=== PATIENT | male | born 1990 | race Two or more races ===

== ENCOUNTER 2016-08-11 22:03 | Emergency (ER) | payer MEDICAID ==
[~2016-08-11] VITALS: Ht 160 cm; Wt 59.0 kg
[2016-08-11 22:06] VITALS: BP 105/69
[2016-08-11] MEDS ORDERED: CIPROFLOXACIN500 M2 ORAL (22:17)
--- NOTE | 2016-08-11 22:17 | Emergency Room Report ---
History of Present Illness General Chief Complaint: Abdominal Pain Source: Patient, EMS Present Illness HPI Is a 26-year-old male with a history of IV course of methamphetamine abuse. He presents with 2 days history of abdominal cramps with profuse diarrhea. Also felt nauseous. No fever or chills. Pain is crampy in nature. 09/01. He said he is having diarrhea every 5 minutes. He's been here for almost an hour without any diarrhea. Denies any other complaint. Pain is 7/10. Allergies: Coded Allergies: PENICILLINS (Verified Allergy, Unknown, 08/11/16) Patient History Past Medical History: see triage record, old chart reviewed Past Surgical History: none Pertinent Family History: none Social History: Denies: smoking Immunizations: other Reviewed Nursing Documentation: PMH: Agreed, PSxH: Agreed Nursing Documentation-PMH History Of Psychiatric Problem: Yes - ANXIETY,PTSD,SCHIZO Review of Systems Eye: Denies: blurred vision, eye pain ENT: Denies: ear pain, nose congestion, throat swelling Respiratory: Denies: cough, shortness of breath Cardiovascular: Denies: chest pain, palpitations Gastrointestinal: Reports: abdominal pain, diarrhea, nausea, vomiting Musculoskeletal: Denies: back pain, joint pain Skin: Denies: rash Neurological: Denies: headache, numbness Endocrine: Denies: increased thirst, increased urine Hematologic/Lymphatic: Denies: easy bruising All Other Systems: negative except mentioned in HPI Physical Exam Vital Signs Date Time Temp Pulse Resp B/P Pulse Ox O2 Delivery O2 Flow Rate FiO2 08/11/16 21:56 98.4 132 16 105/69 96 Room Air vitals with tachycardia Sp02 EP Interpretation: reviewed, normal General Appearance: well appearing, no apparent distress, alert Head: normocephalic, atraumatic Eyes: bilateral eye EOMI, bilateral eye PERRL ENT: hearing grossly normal, normal pharynx Neck: full range of motion, supple, no meningismus Respiratory: chest non-tender, lungs clear, normal breath sounds Cardiovascular #1: regular rate, rhythm, no murmur, tachycardia - HR 104 Gastrointestinal: normal bowel sounds, no mass, no organomegaly, no bruit, non- distended, tenderness - diffuse. soft Musculoskeletal: back normal, gait/station normal, normal range of motion Neurologic: alert, oriented x3 Psychiatric: mood/affect normal Skin: warm/dry Medical Decision Making Diagnostic Impression: Primary Impression: Abdominal pain of unknown etiology Additional Impression: OTHER STIMULANT USE, UNSPECIFIED WITH WITHDRAWAL ER Course Is a presents withdrawal symptoms. No evidence of obstruction. Abdomen is soft. I see no evidence of acute abdomen. We'll discharge home. Patient asked to do HIV testing here. I see no need for emergent HIV testing. This can't be done anonymously an outpatient. I gave him resources for it. Last Vital Signs Date Time Temp Pulse Resp B/P Pulse Ox O2 Delivery O2 Flow Rate FiO2 08/11/16 21:56 98.4 132 16 105/69 96 Room Air Status: improved Disposition: HOME, SELF-CARE Condition: Stable Scripts Ciprofloxacin Hcl* (CIPROFLOXACIN HCL*) 500 Mg Tablet 500 MG ORAL Q12H, #14 TAB 0 Refills Prov: DAMIAN BURTON M.D. 08/11/16 Additional Instructions: Followup with your DrPorfirio in 7 days. Return it worse. DAMIAN BURTON M.D. Aug 11, 2016 22:17
[2016-08-11 22:21] VITALS: BP 105/69
== END 2016-08-11 22:21 | disposition home or self-care (01) ==
LOC: EDBD 22:03 → EMR 22:17
DX: R10.9 Unspecified abdominal pain (principal); F15.93 Other stimulant use, unspecified with withdrawal; R19.7 Diarrhea, unspecified; Z88.0 Allergy status to penicillin; F41.9 Anxiety disorder, unspecified; F43.10 Post-traumatic stress disorder, unspecified; F20.9 Schizophrenia, unspecified
CPT/HCPCS: 99283